=== PATIENT | male | born 1975 ===

== ENCOUNTER 2016-09-25 07:48 | Inpatient (IN) | payer MEDICAID ==
[~2016-09-25] VITALS: Ht 180.3 cm; Wt 99.5 kg
[2016-09-25] MEDS ORDERED: LORazepam 2 MG TABLET PO PRN (09:15)
[2016-09-25] MEDS ORDERED: ZOLPIDEM TARTRATE 10 MG TABLET PO PRN (09:15)
[2016-09-25] MEDS ORDERED: HALOPERIDOL 5 MG TABLET PO PRN (09:15)
[2016-09-25 09:21] VITALS: BP 147/78
[2016-09-25 09:45] VITALS: BP 155/89
[2016-09-25] MEDS ORDERED: INFLUENZA VIRUS VACCINE QVS 2016-17 (3YR+)/PF 60 MCG/0.5 ML SYRINGE IM ONE (10:00)
[2016-09-25] MEDS ORDERED: ACETAMINOPHEN 325 MG TABLET PO PRN (11:15)
[2016-09-25] MEDS ORDERED: NICOTINE 21 MG/24 HOUR PATCH TD SCH (12:00)
[2016-09-25] MEDS: NICOTINE 21 MG/24 HOUR PATCH TD SCH (12:13)
[2016-09-25 16:12] VITALS: BP 128/75
[2016-09-25] MEDS: IBUPROFEN 600 MG TABLET PO PRN (17:39)
[2016-09-25] MEDS: RisperiDONE 1 MG TABLET PO SCH (20:47)
[2016-09-26 06:55] VITALS: BP 142/75
[2016-09-26 07:53] LABS: BASOPHILS % (AUTO) 0.5 % (0.0-2.0); EOSINOPHILS % (AUTO) 2.8 % (1.0-6.0); HEMATOCRIT 44.7 % (41-53); HEMOGLOBIN 14.6 g/dL (13.5-17.5); LYMPHOCYTES % (AUTO) 36.9 % (22.0-44.0); MEAN CORPUSCULAR HEMOGLOBIN 29.7 pg (26.0-34.0); MEAN CORPUSCULAR HGB CONC 32.6 G/dL (31.0-37.0); MEAN CORPUSCULAR VOLUME 91 fL (80-100); MONOCYTES # (AUTO) 0.5 K/uL (0.1-1.0); MONOCYTES % (AUTO) 9.9 % (2.0-9.0); NEUTROPHILS # (AUTO) 2.7 K/uL (1.8-7.7); NEUTROPHILS % (AUTO) 49.9 % (40.0-70.0); PLATELET COUNT (AUTO) 237 K/uL (150-450); RED BLOOD CELL COUNT(AUTO) 4.91 MIL/uL (4.50-5.90); RED CELL DISTRIBUTION WIDTH 13.4 % (11.5-14.5); WHITE BLOOD COUNT (AUTO) 5.5 K/uL (4.5-11.0)
[2016-09-26] MEDS: NICOTINE 21 MG/24 HOUR PATCH TD SCH (08:17)
[2016-09-26 08:21] LABS: ALANINE AMINOTRANSFERASE 23 U/L (12-78); ALBUMIN 3.1 g/dL (3.4-5.0); ANION GAP 8 mmol/L (8-16); ASPARTATE AMINOTRANSFERASE 13 U/L (15-37); BILIRUBIN,TOTAL 0.3 mg/dL (0.1-1.0); CALCIUM, TOTAL 8.3 mg/dL (8.8-10.5); CARBON DIOXIDE 27 mmol/L (22-29); CHLORIDE 103 mmol/L (98-107); CREATININE 0.96 mg/dL (0.60-1.30); GLOMERULAR FILTR. RATE CALC > 60 mL/min (>60); POTASSIUM 4.2 mmol/L (3.5-5.1); SODIUM SERUM 138 mmol/L (136-145); TOTAL PROTEIN, SERUM 6.1 g/dL (6.4-8.2); UREA NITROGEN, BLOOD 13 mg/dL (7-18)
[2016-09-26 08:26] VITALS: BP 140/74
[2016-09-26 08:30] LABS: ADD UA MICROSCOPIC YES; APPEARANCE,URINE TURBID (CLEAR); GLUCOSE, URINE (UA) NEGATIVE (NEGATIVE); KETONES,URINE TRACE mg/dL (NEGATIVE); LEUKOCYTE ESTERASE ,URINE NEGATIVE (NEGATIVE); OCCULT BLOOD,URINE TRACE (NEGATIVE); PH,URINE 5.5 (5.0-8.0); PROTEIN,URINE NEGATIVE (NEGATIVE)
[2016-09-26 08:32] LABS: RBC,URINE None Seen /HPF (0-2)
[2016-09-26 08:33] LABS: AMORPHOUS SEDIMENT,UR Many /LPF (None Seen); SQUAMOUS EPITHELIAL CELL,UR Few /LPF (None Seen); WBC,URINE 0-2 /HPF (0-5)
[2016-09-26 15:12] VITALS: BP 130/90
[2016-09-26 16:12] VITALS: BP 130/90
[2016-09-26] MEDS: IBUPROFEN 600 MG TABLET PO PRN (16:15)
[2016-09-26] MEDS: LEVOFLOXACIN 500 MG TABLET PO SCH (17:34)
[2016-09-26] MEDS: RisperiDONE 1 MG TABLET PO SCH (20:31)
[2016-09-27 06:48] VITALS: BP 124/83
[2016-09-27 08:09] VITALS: BP 144/88
[2016-09-27] MEDS: LEVOFLOXACIN 500 MG TABLET PO SCH (08:37)
[2016-09-27] MEDS: NICOTINE 21 MG/24 HOUR PATCH TD SCH (08:38)
[2016-09-27 16:00] VITALS: BP 140/86
[2016-09-27] MEDS: RisperiDONE 1 MG TABLET PO SCH (20:32)
[2016-09-28 06:44] VITALS: BP 119/71
[2016-09-28 08:09] VITALS: BP 119/72
[2016-09-28] MEDS: LEVOFLOXACIN 500 MG TABLET PO SCH (09:40)
[2016-09-28] MEDS: NICOTINE 21 MG/24 HOUR PATCH TD SCH (09:40)
[2016-09-28 16:00] VITALS: BP 124/66
[2016-09-28] MEDS: RisperiDONE 1 MG TABLET PO SCH (20:38)
[2016-09-29 06:54] VITALS: BP 129/65
[2016-09-29 08:09] VITALS: BP 133/69
[2016-09-29] MEDS ORDERED: RISP1 PO (08:41)
[2016-09-29] MEDS: NICOTINE 21 MG/24 HOUR PATCH TD SCH (10:10)
[2016-09-29] MEDS: LEVOFLOXACIN 500 MG TABLET PO SCH (10:10)
== END 2016-09-29 10:00 | disposition home or self-care (01) | DRG 753 ==
LOC: B3A 09:17 → EDSTATUS 09:26
DX: F31.9 Bipolar disorder, unspecified (principal); R45.851 Suicidal ideations; F29 Unspecified psychosis not due to a substance or known physiological condition; F17.210 Nicotine dependence, cigarettes, uncomplicated; F15.90 Other stimulant use, unspecified, uncomplicated; K59.00 Constipation, unspecified; H02.843 Edema of right eye, unspecified eyelid; R60.9 Edema, unspecified; Z28.21 Immunization not carried out because of patient refusal; Z59.0 Homelessness
CPT/HCPCS: 90471